=== PATIENT | female | born 1970 | race Caucasian/White ===

== ENCOUNTER 2016-12-06 00:53 | Emergency (ER) | payer SELFPAY ==
[~2016-12-06] VITALS: Ht 165.1 cm; Wt 74.8 kg
--- NOTE | 2016-12-06 00:53 | NUR ---
PT BIB [facility], PREBOOK. TAKEN TO OF
[2016-12-06 00:58] VITALS: BP 145/70
--- NOTE | 2016-12-06 01:05 | NUR ---
BIB [facility] OFFICER FOR PRE-BOOK. ETOH
--- NOTE | 2016-12-06 01:09 | NUR ---
Patient being evaluated by DR. AMAYA at bedside.
[2016-12-06 01:12] VITALS: BP 139/68
--- NOTE | 2016-12-06 01:14 | NUR ---
PATIENT BIB [facility] DEPT. PATIENT EXAMINED BY DR. AMAYA. PATIENT MEDICALLY CLEARED AND RELEASED IN CUSTODY IN STABLE CONDITION. [place]IN[place] [id number].
== END 2016-12-06 01:14 ==
LOC: MED 00:53
DX: Z02.89 Encounter for other administrative examinations (principal); Z88.2 Allergy status to sulfonamides